=== PATIENT | female | born 1970 | race Caucasian/White ===

== ENCOUNTER 2024-06-12 11:09 | Inpatient (IN) | payer OTHER, SELFPAY ==
--- NOTE | 2024-06-12 | ECG_ITS ---
Test Reason : PROLONGED QTC Blood Pressure : */* mmHG Vent. Rate : 108 BPM Atrial Rate : 108 BPM P-R Int : 130 ms QRS Dur : 72 ms QT Int : 340 ms P-R-T Axes : 83 74 76 degrees QTcB Int : 455 ms Artifact in tracing Sinus tachycardia Nonspecific ST and T wave abnormality Abnormal ECG When compared with ECG of 12-Jun-2024 11:31, No significant changes seen Referred By: Trevor Koehler Electronically Signed By: GABO BALLESTEROS
--- NOTE | ~2024-06-12 | XR_ITS ---
CLINICAL HISTORY: fall, tenderness 3 view, pelvis and right hip Comparison: None Findings: No acute fracture or dislocation. Mild narrowing of the bilateral acetabulofemoral joints. The soft tissues are unremarkable. IMPRESSION: No acute fracture or dislocation. This document has been electronically signed by: Eloina Dhillon DO on 06/12/2024 13:44:17
--- NOTE | ~2024-06-12 | CT_ITS ---
CLINICAL HISTORY: fall with head strike, unknown LOC CT HEAD WITHOUT CONTRAST Comparison: None Findings: Multiple acquisitions were necessary secondary to patient motion. No acute intracranial hemorrhage, extra-axial fluid collection, hydrocephalus or midline shift. No significant atrophy-like change No significant white matter disease. There is no sinus or mastoid fluid. Visualized orbits: No acute abnormalities. There is no acute fracture. IMPRESSION: 1. No acute intracranial hemorrhage. This document has been electronically signed by: Eloina Dhillon DO on 06/12/2024 14:01:27
--- NOTE | ~2024-06-12 | CT_ITS ---
CLINICAL HISTORY: head strike, epistaxis, unknown LOC CT MAXILLOFACIAL WITHOUT CONTRAST Comparison: None Findings: No acute fractures. Old bilateral nasal bone fractures. Temporomandibular joints are intact. No sinus or mastoid fluid. Nonspecific mild mucosal thickening in the left frontal and right maxillary sinuses. Visualized orbits: No acute abnormalities. No foreign bodies. Please see the separate report for the CT head/brain. IMPRESSION: No acute maxillofacial fracture or acute sinonasal disease. This document has been electronically signed by: Eloina Dhillon DO on 06/12/2024 13:55:54
--- NOTE | ~2024-06-12 | CT_ITS ---
CLINICAL HISTORY: fall with head strike, unknown LOC CT CERVICAL SPINE WITHOUT CONTRAST Comparison: None Findings: Normal vertebral body alignment. [id number] disc and facet degenerative changes. No acute fractures or dislocations. Visualized intracranial contents are unremarkable. No cervical fluid collections or masses. Lung apices are clear. IMPRESSION: No acute fracture in the cervical spine. This document has been electronically signed by: Eloina Dhillon DO on 06/12/2024 13:53:41
[2024-06-12 11:20] VITALS: BP 174/73; PULSE 124
--- NOTE | 2024-06-12 11:22 | ED.PSYCH ---
HPI - Psych General Chief Complaint: Psychiatric Symptoms Stated Complaint: SI Time Seen by Provider: 06/12/24 11:21 Source: patient, EMS, RN notes reviewed, old records reviewed and police Mode of arrival: EMS History of Present Illness ED Provider: Prema HPI Narrative: Patient is a 53-year-old female with history of migraines presenting to the emergency department on a section 12 after partner found a suicide note, a noose, and an empty bottle of prosecco. Patient denies suicidal ideation at this time, states that she has been fighting with her partner for the past 6 months and admits to making suicidal statements out of anger. Denies homicidal ideation, auditory or visual hallucinations. Patient complaining of headache, neck, back and right hip pain after a slip and fall on water in the bathroom last night. Patient guarded, giving minimal one-word answers to questions, minimal engagement in assessment. MD complaint: suicidal ideation Related Data Home Medications ?Medication ?Instructions ?Recorded ?Confirmed baclofen 10 mg tablet 10 mg PO BEDTIME 06/12/24 06/12/24 dextroamphetamine-amphetamine 20 20 mg PO 2XD PRN ADD 06/12/24 06/12/24 mg tablet (Adderall) duloxetine 30 mg capsule,delayed 30 mg PO DAILY 06/12/24 06/12/24 release lorazepam 1 mg tablet (Ativan) 1 mg PO DAILY PRN Anxiety 06/12/24 06/12/24 mirtazapine 15 mg tablet 15 mg PO BEDTIME 06/12/24 06/12/24 tramadol 50 mg tablet 50 mg PO Q6H PRN Pain 06/12/24 06/12/24 Allergies Allergy/AdvReac Type Severity Reaction Status Date / Time Unable to Assess Allergy Verified 06/12/24 11:39 [facility] Social History Social History Advance Directives: No Advance Directives Information Provided: No Physical Exam Vital Signs: Vital Signs: Last Vital Signs Temp 98.1 F 06/12/24 14:11 Pulse 100 06/12/24 14:11 Resp 18 06/12/24 14:11 BP 141/71 H 06/12/24 14:11 Pulse Ox 118 H 06/12/24 14:11 O2 Del Method Room Air 06/12/24 14:11 BMI result Body Mass Index 20.0 Course Reevaluation(s) Reevaluation #1: 06/12/24 16:13 Per CARE team, patient will be inpatient LOC on a section 12 . Time: 16:13 Medical Decision Making Medical Decision Making [facility] Narrative: Patient is a 53-year-old female with history of migraines presenting to the emergency department on a section 12 after partner found a suicide note, a noose, and an empty bottle of prosecco. On exam patient is awake, A+Ox3, VS WNL, afebrile, normal neurological exam without focal deficits, physical exam findings as above. Given reported symptoms and physical exam findings, initial differential includes but is not limited to suicidal ideation, depression, ICH, skull or cervical vertebral fracture or subluxation, hip contusion versus fracture. Patient offered medication for her migraine/headache which she declined. Labs notable for slight leukocytosis, mild hypokalemia, elevated transaminases with normal Tbili, no prior labs for comparison but patient denies abdominal pain, negative acetaminophen and aspirin levels. X-ray right hip/pelvis notable for no acute fracture. CT head, cervical spine and facial bones notable for no evidence of ICH, skull, facial, or cervical vertebral fracture subluxation My interpretation is in agreement with the radiologist's interpretation. Will medically clear patient at this time and place him physician observation for care team evaluation. Differential Diagnosis Differential Diagnoses: The differential diagnosis associated with the presentation includes As per [facility] Admission/Observation Consideration of admission/observation: Escalation of care including admission/observation considered Consult Healthcare Provider Management of the patient was discussed with: Behavioral Health Provider Lab Data [facility] Lab Attestation statement: I reviewed the patient's lab results. As per [facility] 06/12/24 11:44 06/12/24 11:44 Labs: Lab Results 06/12/24 Range/Units 11:44 WBC 11.7 H (4.8-10.8) X10*3/uL RBC 4.22 (4.20-5.50) X10*6/uL Hgb 12.9 (12.0-16.0) g/dl Hct 37.6 (37.0-47.0) % MCV 89.1 (80.0-98.0) fL MCH 30.6 (27.0-33.0) pg MCHC 34.3 (31.0-35.0) g/dl RDW 14.0 (11.0-16.0) % Plt Count 267 (160-400) X10*3/uL MPV 9.5 (9.4-12.3) fL Immature Gran % (Auto) 0.3 (0.0-0.4) % Neut % (Auto) 67.7 (45-73) % Lymph % (Auto) 24.3 (20-40) % [place] % (Auto) 6.8 (2-11) % Eos % (Auto) 0.6 (0-4) % Baso % (Auto) 0.3 (0-2) % Lymph # (Auto) 2.8 (1.2-4.9) X10*3/uL [place] # (Auto) 0.8 (0.1-1.2) X10*3/uL Eos # (Auto) 0.1 (0.0-0.4) X10*3/uL Baso # (Auto) 0.0 (0.0-0.2) X10*3/uL Abs Immat Gran (auto) 0.04 H (0.00-0.03) X10*3/uL Absolute Neuts (auto) 7.9 (2.0-8.3) x10*3/uL Absolute Nucleated RBC 0.000 (0.0-0.012) X10*3/uL Nucleated RBC % (auto) 0.0 (0.0-0.2) /100WBC Sodium 139 (135-145) mmol/L Potassium 3.2 L (3.3-5.1) mmol/L Chloride 102 (96-108) mmol/L Carbon Dioxide 26 (22-29) mmol/L Anion Gap 14 (12-20) BUN 16 (9-16) mg/dL Creatinine 0.91 (0.5-1.4) mg/dL Estim Creat Clear Calc 60.2 Estimated GFR > 60 Random Glucose 119 H (60-115) mg/dL Calcium 9.6 (8.4-10.2) mg/dL Total Bilirubin 0.4 (0.0-1.0) mg/dL AST 132 H (5-31) U/L ALT 110 H (0-31) U/L Alkaline Phosphatase 82 (39-117) U/L Total Protein 6.9 (6.5-8.0) g/dL Albumin 4.4 (3.5-5.0) g/dL Salicylates < 5.0 L (15-30) mg/dL Acetaminophen < 3 (<30) mcg/mL Ethyl Alcohol < 10 mg/dL Influenza Type A (PCR) NEGATIVE (Negative) Influenza Type B (PCR) NEGATIVE (Negative) RSV RNA Qual (PCR) NEGATIVE (Negative) SARS-CoV-2 RNA (RT-PCR) NEGATIVE (Negative) Independent Interpretation I performed an independent interpretation of an: Plain X-Ray and CT Scan Interpretation: X-ray right hip/pelvis notable for no acute fracture. CT head, cervical spine and facial bones notable for no evidence of ICH, skull, facial, or cervical vertebral fracture subluxation Radiology Impression Discussion of test interpretation with radiology: I have reviewed the radiologist's reading. Radiologist Impression: Findings: Multiple acquisitions were necessary secondary to patient motion. No acute intracranial hemorrhage, extra-axial fluid collection, hydrocephalus or midline shift. No significant atrophy-like change No significant white matter disease. There is no sinus or mastoid fluid. Visualized orbits: No acute abnormalities. There is no acute fracture. IMPRESSION: 1. No acute intracranial hemorrhage. Findings: No acute fractures. Old bilateral nasal bone fractures. Temporomandibular joints are intact. No sinus or mastoid fluid. Nonspecific mild mucosal thickening in the left frontal and right maxillary sinuses. Visualized orbits: No acute abnormalities. No foreign bodies. Please see the separate report for the CT head/brain. IMPRESSION: No acute maxillofacial fracture or acute sinonasal disease. CT CERVICAL SPINE WITHOUT CONTRAST Comparison: None Findings: Normal vertebral body alignment. [id number] disc and facet degenerative changes. No acute fractures or dislocations. Visualized intracranial contents are unremarkable. No cervical fluid collections or masses. Lung apices are clear. IMPRESSION: No acute fracture in the cervical spine. 3 view, pelvis and right hip Comparison: None Findings: No acute fracture or dislocation. Mild narrowing of the bilateral acetabulofemoral joints. The soft tissues are unremarkable. IMPRESSION: No acute fracture or dislocation. This document has been electronically signed by: Eloina Dhillon DO on 06/12/2024 13:44:17 External Record Review External record reviewed: Inpatient record, Office record and Outpatient record Discharge Plan Discharge Clinical Impression: Suicidal ideation Patient Disposition: Admitted As Inpatient Interventions: Coke-Suicide Risk Severity Scale Last Done: 06/12/24 15:59
--- NOTE | 2024-06-12 11:22 | PC.NURSE ---
Per EMS pt called for fall with head,neck and r hip pain. EMS states pt has long standing hx of depression and SI. Partner reported finding notes, a noose, and empty bottle of prosecco.
[2024-06-12 11:27] VITALS: BP 161/95; PULSE 129; RESP 24; TEMP 37.5; O2SAT 100
--- NOTE | 2024-06-12 11:27 | ECG_ITS ---
Test Reason : SI Blood Pressure : */* mmHG Vent. Rate : 128 BPM Atrial Rate : 128 BPM P-R Int : 120 ms QRS Dur : 70 ms QT Int : 404 ms P-R-T Axes : * 58 91 degrees QTcB Int : 589 ms Sinus tachycardia Nonspecific ST and T wave abnormality Abnormal ECG No previous ECGs available Referred By: Freida Lloyd Electronically Signed By: GABO BALLESTEROS
[2024-06-12 11:48] LABS: MANUAL DIFF FLAG NO
--- NOTE | 2024-06-12 11:49 | PC.NURSE ---
belongings in [facility] 3
--- NOTE | 2024-06-12 11:49 | PC.NURSE ---
Pt asked about SI risks and pt not answering questions related to this
[2024-06-12 11:50] LABS: Basophils Percent Auto 0.3 % (0-2); Eosinophils Absolute Auto 0.1 X10*3/uL (0.0-0.4); Eosinophils Percent Auto 0.6 % (0-4); Hematocrit 37.6 % (37.0-47.0); Hemoglobin 12.9 g/dl (12.0-16.0); Imm Gran Abs Auto 0.04 X10*3/uL (0.00-0.03); Imm Gran Pct Auto 0.3 % (0.0-0.4); Lymphocytes Absolute Auto 2.8 X10*3/uL (1.2-4.9); Lymphocytes Percent Auto 24.3 % (20-40); Mean Corpuscular HGB Conc 34.3 g/dl (31.0-35.0); Mean Corpuscular Hemoglobin 30.6 pg (27.0-33.0); Mean Corpuscular Volume 89.1 fL (80.0-98.0); Mean Platelet Volume 9.5 fL (9.4-12.3); Monocytes Absolute Auto 0.8 X10*3/uL (0.1-1.2); Monocytes Percent Auto 6.8 % (2-11); Neutrophils Absolute Auto 7.9 x10*3/uL (2.0-8.3); Neutrophils Percent Auto 67.7 % (45-73); Platelet Count 267 X10*3/uL (160-400); Red Blood Count 4.22 X10*6/uL (4.20-5.50); White Blood Count 11.7 X10*3/uL (4.8-10.8)
[2024-06-12 12:08] LABS: Acetaminophen LAB < 3 mcg/mL (<30); Alanine Aminotransferase 110 U/L (0-31); Albumin Level 4.4 g/dL (3.5-5.0); Alkaline Phosphatase 82 U/L (39-117); Anion Gap 14 (12-20); Aspartate Amino Transferase 132 U/L (5-31); Bilirubin Total 0.4 mg/dL (0.0-1.0); Blood Urea Nitrogen 16 mg/dL (9-16); Calcium 9.6 mg/dL (8.4-10.2); Carbon Dioxide 26 mmol/L (22-29); Chloride 102 mmol/L (96-108); Creatinine Clr Calc Pharmacy 60.2; Estimated Glomerular Filt Rate > 60; Ethanol < 10 mg/dL; Glucose Random 119 mg/dL (60-115); Potassium 3.2 mmol/L (3.3-5.1); Salicylate < 5.0 mg/dL (15-30); Sodium 139 mmol/L (135-145); Total Protein 6.9 g/dL (6.5-8.0)
[2024-06-12 12:30] LABS: Influenza A PCR NEGATIVE (Negative); Influenza B PCR NEGATIVE (Negative); Resp Syncy Virus RNA Qual PCR NEGATIVE (Negative); SARS COV2 PCR INHOUSE NEGATIVE (Negative)
[2024-06-12 14:11] VITALS: BP 141/71; PULSE 100; RESP 18; TEMP 36.7; O2SAT 118
--- NOTE | 2024-06-12 14:38 | MHC.CARE ---
T/w reached out to [facility] ([phone]) to inquire if patient is known to the agency/ crisis services. Per Sade with [facility], patient is not known to [facility] or [facility], however Sade goes on to share that earlier this morning they received a phone call from patient's individual therapist, Radha Shafer ([phone]). Radha had called [facility] after she herself was called by patient and her husbands couple's counselor, Kira Bronson. Grisel, the couples counselor, informed Radha, the individual counselor, that patient's called her to report that patient had attempted to hang herself but he was able to stop her. Sade with [facility] informed Radha that they could call for a well being check or she could. Radha called and patient was brought to the [facility] ED.
--- NOTE | 2024-06-12 14:57 | PC.NURSE ---
patient complaining of headache, multiple RNs and provider offering medications for headache - patient declining all medications offered. will attempt to ambulate patient d/t pain in right hip
--- NOTE | 2024-06-12 15:15 | MHC.CARE ---
VM left for Radha Shafer, therapist, requesting call back
--- NOTE | 2024-06-12 18:25 | PC.NURSE ---
Pt aware of impending admission; in room with partner, tolerating po intake
--- NOTE | 2024-06-12 18:41 | PC.NURSE ---
Telephone report gv to [facility] on M5
[2024-06-12] MEDS: Potassium Chloride Packet 20 MEQ PACKET PO (18:55)
--- NOTE | 2024-06-12 19:25 | PC.NURSE ---
patient appears to remain at rest presently appears in no distress
[2024-06-12] MEDS: Ondansetron ODT 4 MG TAB.RAPDIS TRANSLINGU (19:36)
[2024-06-12 21:00] VITALS: BP 160/90; PULSE 105; RESP 16; TEMP 36.8; O2SAT 100
[2024-06-12] MEDS: Acetaminophen 325 MG TABLET 650 MG PO (21:21)
[2024-06-12] MEDS: Ibuprofen 400 MG TABLET PO (22:13)
[2024-06-13] VITALS (12 sets, daily range): BP systolic 142–190; BP diastolic 74–101; PULSE 87–113; RESP 19–20; TEMP 36.4–37.2; O2SAT 98–100
--- NOTE | 2024-06-13 | ECG_ITS ---
Test Reason : qtc monitor Blood Pressure : */* mmHG Vent. Rate : 94 BPM Atrial Rate : 94 BPM P-R Int : 138 ms QRS Dur : 72 ms QT Int : 360 ms P-R-T Axes : 77 46 50 degrees QTcB Int : 450 ms Normal sinus rhythm Nonspecific ST abnormality Abnormal ECG When compared with ECG of 12-Jun-2024 18:07, T wave inversion no longer evident in Anterior leads Referred By: Trevor Koehler Electronically Signed By: GABO BALLESTEROS
--- NOTE | 2024-06-13 02:21 | PC.ADMIT ---
Neela is a 53 years old female who was admitted from [facility] with CV status. She arrived to on 06/12/24 at 21:00. Per crisis evaluation she has history of migraines and was presented to the emergency department on a section 12 after partner found a suicide note, a noose, and an empty bottle of prosecco. Pt reports that she wants to stop pain and endorses hopelessness, she did not confirm having SI per crisis. shared that she left notes about wanting to . Patient complaining of headache, neck, back and right hip pain after a slip and fall on water in the bathroom last night at home. Upon arrival to pt reported a severe migraine and could not participate in admission assessment. Her gait was unsteady due to pain from recent fall and she was given a walker and placed on 5 min checks.
[2024-06-13] MEDS: Ibuprofen 400 MG TABLET PO (08:18)
[2024-06-13 08:44] LABS: Estimated Average Glucose 100 mg/dL; Hemoglobin A1C 113.2853 umol/L; Hemoglobin A1c % 5.1 % (<6.0); Total Hemoglobin (HGBA1C) 3470.7437 umol/L
--- NOTE | 2024-06-13 08:57 | HO.PSYADMNOT ---
HPI Date of Service: 06/13/24 Chief Complaint: SI Sources of Information: patient interviewed, chart reviewed and crisis/core team assessment reviewed HPI Subjective Notes: Conditional Voluntary Narrative: Patient is a 53-year-old female with history of chronic, intractable migraines for 25 years (treated at [facility]), MDD, PTSD? who presents for SI. Patient reports that she and her have had marital strife and have been in couples therapy for the past 6 month; during this time her chronic depression has worsened. She has remained on duloxetine 30 mg, not tolerating higher dose but was also started on mirtazapine few months ago as well. Patient reports continued depression and also feeling angry at her . This past week she slipped in bathroom, fell, hurt her hip. She called her to let him know and he called the ambulance who per chart, found a noose, a suicide note and a bottle up for wine. Patient said I was angry at her because he called the ambulance...he thought I was going to kill myself... On further inquiry, she acknowledges she perhaps said something to him to make him think she was suicidal... But says I don't remember what because i was pissed... Regarding the noose, she thinks perhaps she made it the day before. She says it was nothing she was going to act on but she was just thinking how crummy her life is; she reiterates she was not going to act on it but thinks maybe she wanted her to know how crummy she was feeling... And that she has been angry with him. Patient reports that since all this happened he's been better, more attentive..... She denies that there was a suicide note at all; she says she only had some of the wine and that she does not drink regularly. Patient acknowledges depression but denies any SI. denies hx of manic type behaviors/episodes Denies drug or alcohol abuse; uses cannabis for migraines Endorses history of childhood trauma Denies hx of self harm; SA Patient seen at 15:00 on 06/13 Past Psychiatric History: No history of psychiatric admissions Denies hx of self harm; SA Medications on Duloxetine 30mg for years which has partially helped; did go to 60mg but too much medication in my system; felt jittery on Mirtazapine 15mg for months med trials: zoloft paxil? Effexo Medical Evaluation Reviewed: Yes [facility] Medical History (Updated 06/13/24 @ 17:43 by Trevor Koehler MD) Migraine, intractable MDD (major depressive disorder), recurrent severe, without psychosis Family History: Deferred Social History: Lives with her Currently involved in couples therapy Substance History: Denies drug or alcohol abuse; uses cannabis for migraines Trauma History: Endorses history of childhood trauma Diagnostics Vital Signs (24Hr): Vital Signs - 24 hr 06/12/24 11:27 06/12/24 14:11 06/12/24 21:00 Temperature 99.5 F 98.1 F 98.3 F Pulse Rate 129 H 100 105 H Respiratory Rate 24 H 18 16 Blood Pressure 161/95 H 141/71 H 160/90 H Pulse Oximetry 100 118 H 100 Oxygen Delivery Method Room Air Room Air 06/13/24 08:00 Temperature 97.6 F Pulse Rate 98 Respiratory Rate 20 Blood Pressure 190/94 H Pulse Oximetry 100 Oxygen Delivery Method Room Air BMI result Body Mass Index 20.0 Labs 06/12/24 11:44 06/13/24 08:26 Labs: Laboratory Results - last 48 hr 06/12/24 06/13/24 11:44 08:26 WBC 11.7 H RBC 4.22 Hgb 12.9 Hct 37.6 MCV 89.1 MCH 30.6 MCHC 34.3 RDW 14.0 Plt Count 267 MPV 9.5 Immature Gran % (Auto) 0.3 Neut % (Auto) 67.7 Lymph % (Auto) 24.3 [place] % (Auto) 6.8 Eos % (Auto) 0.6 Baso % (Auto) 0.3 Lymph # (Auto) 2.8 [place] # (Auto) 0.8 Eos # (Auto) 0.1 Baso # (Auto) 0.0 Abs Immat Gran (auto) 0.04 H Absolute Neuts (auto) 7.9 Absolute Nucleated RBC 0.000 Nucleated RBC % (auto) 0.0 Sodium 139 Potassium 3.2 L Chloride 102 Carbon Dioxide 26 Anion Gap 14 BUN 16 Creatinine 0.91 Estim Creat Clear Calc 60.2 Estimated GFR > 60 Random Glucose 119 H Estimat Average Glucose 100 Hemoglobin A1c % 5.1 Calcium 9.6 Total Bilirubin 0.4 AST 132 H ALT 110 H Alkaline Phosphatase 82 Total Protein 6.9 Albumin 4.4 Salicylates < 5.0 L Acetaminophen < 3 Ethyl Alcohol < 10 Influenza Type A (PCR) NEGATIVE Influenza Type B (PCR) NEGATIVE RSV RNA Qual (PCR) NEGATIVE SARS-CoV-2 RNA (RT-PCR) NEGATIVE Meds/Allergies Meds Home Medications ?Medication ?Instructions ?Recorded ?Confirmed ?Type baclofen 10 mg tablet 10 mg PO BEDTIME 06/12/24 06/13/24 History dextroamphetamine-amphetamine 20 20 mg PO 2XD PRN ADD 06/12/24 06/13/24 History mg tablet (Adderall) duloxetine 30 mg capsule,delayed 30 mg PO DAILY 06/12/24 06/13/24 History release lorazepam 1 mg tablet (Ativan) 1 mg PO DAILY PRN Anxiety 06/12/24 06/13/24 History mirtazapine 15 mg tablet 15 mg PO BEDTIME 06/12/24 06/13/24 History tramadol 50 mg tablet 50 mg PO Q6H PRN Pain 06/12/24 06/13/24 History Allergies Allergies Allergy/AdvReac Type Severity Reaction Status Date / Time Metoclopramide AdvReac Intermediate agitation Uncoded 06/13/24 12:29 Mental Status Exam Mental Status Exam Narrative: Pt is alert and oriented; behavior is cooperative, calm, sitting on the bed with towel over her eyes; somewhat guarded; patient is not in distress; dressed in hospital attire with unkempt hair but adequate hygiene; mood is described as depressed and affect congruent; eye contact appropriate; Speech is soft spoken; normal rate and prosody and not pressured; psychomotor retardation present; thought process isl directed; Thought content migraines, marital struggles, tx; otherwise pertinent to relevant topics and without any delusional content, paranoid ideations or grandiosity; denies any SI/HI. Denies AVH and there is no evidence of perceptual disturbance. Patients insight and judgment impaired Assessment & Plan Assessment & Plan (1) MDD (major depressive disorder), recurrent severe, without psychosis: Status: Acute Code(s): F33.2 - Major depressive disorder, recurrent severe without psychotic features (2) Migraine, intractable: Status: Acute Code(s): G43.919 - Migraine, unspecified, intractable, without status migrainosus Plan Patient is a 53-year-old female with history of chronic, intractable migraines for 25 years (treated at [facility]), MDD, PTSD? who presents for SI. Patient reports that she and her have had marital strife and have been in couples therapy for the past 6 month; during this time her chronic depression has worsened. She has remained on duloxetine 30 mg, not tolerating higher dose but was also started on mirtazapine few months ago as well. Patient reports continued depression and also feeling angry at her . This past week she slipped in bathroom, fell, hurt her hip. She called her to let him know and he called the ambulance who per chart, found a noose, a suicide note and a bottle up for wine. Patient said I was angry at her because he called the ambulance...he thought I was going to kill myself... On further inquiry, she acknowledges she perhaps said something to him to make him think she was suicidal... But says I don't remember what because i was pissed... Regarding the noose, she thinks perhaps she made it the day before. She says it was nothing she was going to act on but she was just thinking how crummy her life is; she reiterates she was not going to act on it but thinks maybe she wanted her to know how crummy she was feeling... And that she has been angry with him. Patient reports that since all this happened he's been better, more attentive..... She denies that there was a suicide note at all; she says she only had some of the wine and that she does not drink regularly. Patient acknowledges depression but denies any SI. denies hx of manic type behaviors/episodes Denies drug or alcohol abuse; uses cannabis for migraines Endorses history of childhood trauma Denies hx of self harm; SA Formulation/clinical reasoning: Patient struggling with depression in the midst of marital strife. Denies actual SI reports this was a gesture motivated by feeling hurt and anger towards . Patient reports chronic depression with only partial benefit from Cymbalta however does not tolerate higher dose. Agrees to increasing mirtazapine -patient denies any history of hypertension however has been hypertensive since coming to the unit -benefitted modestly from hydralazine; will try clonidine and monitor PLAN: CV Q 15 minute checks Continue duloxetine 30 mg Increase mirtazapine to 30 mg q.h.s. for ongoing depression Continue Abilify 2 mg daily as augmentation for depression Adding clonidine 0.1 mg b.i.d.; may help with anxiety and help lower blood pressure Will add hydralazine p.r.n. for hypertension Patient may use black hat which she uses to mitigate light triggers for migraine Patient educated on: diagnosis, medication risk/benefits and medical condition Informed Consent: understands Reason for continued inpatient stay Substantial Risk for: rapid decompensation Statement Statement: I have reviewed the history and physical and performed a pertinent examination on my patient. No changes have occurred unless specified. If the History and Physical was not performed prior to admission, the Hospitalist's service will be consulted for completing the admission physical. Time Spent With Patient Time: Total time managing care of this patient today ____ minutes.
[2024-06-13 09:10] LABS: Alanine Aminotransferase 96 U/L (0-31); Albumin Level 4.3 g/dL (3.5-5.0); Alkaline Phosphatase 76 U/L (39-117); Anion Gap 20 (12-20); Aspartate Amino Transferase 102 U/L (5-31); Bilirubin Total 0.8 mg/dL (0.0-1.0); Blood Urea Nitrogen 22 mg/dL (9-16); Calcium 9.5 mg/dL (8.4-10.2); Carbon Dioxide 24 mmol/L (22-29); Chloride 103 mmol/L (96-108); Cholesterol 172 mg/dL (<200); Creatinine Clr Calc Pharmacy 76.1; Estimated Glomerular Filt Rate > 60; Glucose Random 100 mg/dL (60-115); HDL Cholesterol 76 mg/dL (>40); LDL Cholesterol Calculated 85 mg/dL (<100); Potassium 3.5 mmol/L (3.3-5.1); Sodium 143 mmol/L (135-145); TSH reflex Free T4 2.63 uIU/mL (0.32-4.0); Total Protein 6.9 g/dL (6.5-8.0); Triglycerides 59 mg/dL (<150)
[2024-06-13] MEDS: Butalb/Acetamin/Caff 50/325/40 TABLET 1 TAB PO ×2 (09:21→21:16)
[2024-06-13] MEDS: hydrALAZINE HCl 10 MG TABLET PO ×2 (09:52→11:30)
[2024-06-13 12:55] LABS: Appearance Urine Clear; Color Urine Dark Yellow; Glucose Urine UA Negative (Negative); Leukocyte Esterase Urine Negative (Negative); Nitrite Urine Negative (Negative); PH 5.5 (5.0-9.0); Specific Gravity - Urine >= 1.030 (1.005-1.025); UMIC TRIGGER UACC YES; Urine Blood Negative (Negative); Urine Ketones 80 mg/dL (Negative); Urine Protein 30 (1+) mg/dL (Neg-Trace)
[2024-06-13 13:05] LABS: Amphetamine Screen Urine POSITIVE (Not Detect); Barbiturates, Urine Not Detected (Not Detect); Benzodiazepines Screen Urine Not Detected (Not Detect); Buprenorphine Scr Not Detected (Not Detect); Cannabinoid Screen Urine POSITIVE (Not Detect); Cocaine Screen Urine Not Detected (Not Detect); Fentanyl, urine Not Detected (Not Detect); Methadone Screen, Urine Not Detected (Not Detect); Opiate Screen Urine Not Detected (Not Detect); Oxycodone Screen Urine Not Detected (Not Detect); Phencyclidine Screen Urine Not Detected (Not Detect)
[2024-06-13 13:15] LABS: Bacteria Urine Trace (None Seen); Hyaline Casts Urine 0-2 /LPF (0-2); RBC Urine 0-2 /HPF (0-2); WBC Urine 0-5 /HPF (0-5)
[2024-06-13] MEDS: DULoxetine HCl 30 MG CAPSULE.DR PO (15:56)
[2024-06-13] MEDS: ARIPiprazole 2 MG TABLET PO (15:56)
[2024-06-13] MEDS: cloNIDine HCL 0.1 MG TABLET PO ×2 (16:02→21:15)
[2024-06-13] MEDS: LORazepam 1 MG TABLET PO (18:11)
[2024-06-13] MEDS: traMADoL HCL 50 MG TABLET PO (18:15)
[2024-06-13] MEDS: hydrALAZINE HCl 25 MG TABLET PO (18:56)
--- NOTE | 2024-06-13 19:05 | PC.NURSE ---
Pt BP rechecked after receiving Clonidine this evening and largely unchanged. BP reading 180/97, pulse 113. MD Koehler notified and recieved order for Hydralazine 25 mg po once at same time medicated with Ativan and Tramadol for reported pain ro right hip (and ongoing reported migraine AUGUSTE) BP unchanged after Tramadol and Ativan and given ordered Hydralazine. Provider asked for hospitalist consult for hypertension. Pt reports she doesn't have high blood pressure and is not on any antihypertensives. Will endorse to night RN to re evaluate BP in 1 hr and follow up with hospitalist consult recommendations.
--- NOTE | 2024-06-13 19:34 | P.CNHOSGPS_ITS ---
History of Present Illness Data of Consult Service Date: 06/13/24 Requesting physician: Trevor Koehler Primary Care Provider: Unknown Physician HPI Reason for consult: HTN, intractable Migraine (chronic) Patient is a 53-year-old female with past medical history of migraine (intractable), fibromyalgia, MDD, insomnia was admitted to the psychiatric unit after medical clearance in the emergency department status post fall, mechanical in nature and negative CT of the head, face, and cervical spine for report of suicidal ideations by patient's spouse. Patient noted to have persistent hypertension 180s over 90s with continued symptoms of intractable migraine. Patient does on occasion have aura. Patient reports pain mostly in the frontal area. Patient has had her eyes checked recently and does wear glasses for reading only. Patient continues to have head to toe stiffness status post fall with pain in the lower back area. Patient has mild bruising over the left thumb area but with full range of motion of the left hand and left arm. Patient has areas of redness that are blanchable in the coccyx area. No open wounds found. Patient states she follows with Neurology at [facility] for her migraines and receives 31 injections every 8 weeks. Patient has had migraines for the last 25 years. Patient has extensive that the injections are now interfering with her fibromyalgia. Patient states she did get minimal relief with the Fioricet today. Patient no longer takes Imitrex p.r.n.. Neurological exam within normal limits. Psychiatry has already started patient on clonidine 0.1 mg b.i.d.. Patient did receive 2 doses of hydralazine. Staff are monitoring patient's blood pressure closely. EKG was negative for any abnormal findings including ischemic changes. No murmur on exam. No vascular concerns found. Review of Systems 2 Review of Systems: Patient denies chest pain, shortness of breath at rest or with exertion, abdominal pain, nausea, vomiting, lower calf edema or pain. Patient reports intractable migraine symptoms reporting 6/10 frontal area pain. Patient denies any changes with her visual acuity. Patient states she is having stiffness and pain in the left side more so than the right status post a fall 24 hours ago. Yes all other systems are reviewed and are negative [facility] Medical History (Updated 06/13/24 @ 19:51 by ISABEL Isaac) Migraine, intractable MDD (major depressive disorder), recurrent severe, without psychosis Cognitive capacity: Alert and orientated x3 Functional capacity: independent ambulation (Patient provided walker by staff in case needed) Patient : No Social History Household Members: Family Housing: House Patient Tobacco Use Status: Never used Tobacco Use of substances other than those prescribed or required for medical reasons: Yes Substance Use Type: Marijuana Substance Use Frequency: Daily Last Used Substance: Just Prior to Admission Currently Displaying Signs/Symptoms of Drug Intoxication Withdrawal: No Any prior treatment program specific to substance use: No Have you been hit, kicked, punched, or otherwise hurt by someone within the past year? If so, by whom?: No Do you feel safe in your current relationship?: Yes Is there a partner from a previous relationship who is making you feel unsafe now?: No Are you made to feel afraid or neglected: No Advance Directives: No Advance Directives Information Provided: No Do you have thoughts of harming others: None Do you have a plan to hurt others: No Plan Recently lost weight without trying: No Nutrition Risks: No Nutritional Risk Patient : No : No service: No Sexual orientation: Straight/Heterosexual Ebola Risk: Travel/Contact With Anyone From Affected Area/s: No Has Patient Experienced Ebola Symptoms: No Meds Allergies Allergy/AdvReac Type Severity Reaction Status Date / Time Metoclopramide AdvReac Intermediate agitation Uncoded 06/13/24 12:29 Active Medications: Current Medications Acetaminophen (Acetaminophen 325 Mg Tablet) 650 mg PO Q6H PRN PRN Reason: Headache/Pain, Scale 1-10 Last Admin: 06/12/24 21:21 Dose: 650 mg Al Hydroxide/Mg Hydroxide (Magnesium Hydrox/Alum Hydrox 30 Ml Oral.Susp) 30 ml PO Q6H PRN PRN Reason: Heartburn/Nausea Aripiprazole (Aripiprazole 2 Mg Tablet) 2 mg PO DAILY LADI Baclofen (Baclofen 10 Mg Tablet) 10 mg PO BEDTIME LADI Clonidine HCl (Clonidine Hcl 0.1 Mg Tablet) 0.1 mg PO BID LADI; Protocol Duloxetine HCl (Duloxetine Hcl 30 Mg Capsule.Dr) 30 mg PO DAILY LADI Hydroxyzine HCl (Hydroxyzine Hcl 25 Mg Tablet) 25 mg PO Q6H PRN PRN Reason: mild anxiety Ibuprofen (Ibuprofen 400 Mg Tablet) 400 mg PO Q6H PRN PRN Reason: Pain, Moderate(Pain Scale 4-6) Last Admin: 06/13/24 08:18 Dose: 400 mg Lorazepam (Lorazepam 1 Mg Tablet) 1 mg PO DAILY PRN PRN Reason: Anxiety Last Admin: 06/13/24 18:11 Dose: 1 mg Magnesium Hydroxide (Milk Of Magnesia 30 Ml Oral.Susp) 30 ml PO DAILY PRN PRN Reason: Constipation Mirtazapine (Mirtazapine 30 Mg Tablet) 30 mg PO BEDTIME LADI Nicotine Polacrilex (Nicotine Polacrilex 2 Mg Gum) 4 mg BUCCAL Q2H PRN PRN Reason: Nicotine Cravings Olanzapine (Olanzapine 5 Mg Tablet) 5 mg PO TID PRN PRN Reason: agitation Ondansetron HCl (Ondansetron Odt 4 Mg Tab.Rapdis) 4 mg TRANSLINGU Q6H PRN PRN Reason: Nausea and Vomiting Last Admin: 06/12/24 19:36 Dose: 4 mg Tramadol HCl (Tramadol Hcl 50 Mg Tablet) 50 mg PO Q6H PRN PRN Reason: severe Pain Last Admin: 06/13/24 18:15 Dose: 50 mg Trazodone HCl (Trazodone Hcl 50 Mg Tablet) 50 mg PO BEDTIME MRX1 PRN PRN Reason: Insomnia Home Medications ?Medication ?Instructions ?Recorded ?Confirmed ?Last Taken ?Type baclofen 10 mg tablet 10 mg PO BEDTIME 06/12/24 06/13/24 06/11/24 History 10 mg dextroamphetamine-amphetamine 20 20 mg PO 2XD PRN ADD 06/12/24 06/13/24 Unknown History mg tablet (Adderall) duloxetine 30 mg capsule,delayed 30 mg PO DAILY 06/12/24 06/13/24 06/11/24 History release 30 mg lorazepam 1 mg tablet (Ativan) 1 mg PO DAILY PRN Anxiety 06/12/24 06/13/24 06/11/24 History 1 mg mirtazapine 15 mg tablet 15 mg PO BEDTIME 06/12/24 06/13/24 06/11/24 History 15 mg tramadol 50 mg tablet 50 mg PO Q6H PRN Pain 06/12/24 06/13/24 06/11/24 History 50 mg Results Labs 06/12/24 11:44 06/13/24 08:26 Labs: Laboratory Results - last 24 hr 04/27/25 04/27/25 08:26 12:15 Anion Gap 20 Estim Creat Clear Calc 76.1 Estimated GFR > 60 Random Glucose 100 Estimat Average Glucose 100 Hemoglobin A1c % 5.1 Calcium 9.5 Total Bilirubin 0.8 AST 102 H ALT 96 H Alkaline Phosphatase 76 Total Protein 6.9 Albumin 4.3 Triglycerides 59 Cholesterol 172 LDL Cholesterol, Calc 85 HDL Cholesterol 76 TSH 2.63 Urine Color Dark Yellow Urine Appearance Clear Urine pH 5.5 Ur Specific [place] >= 1.030 H Urine Protein 30 (1+) H Urine Glucose (UA) Negative Urine Ketones 80 Urine Blood Negative Urine Nitrite Negative Ur Leukocyte Esterase Negative Urine RBC 0-2 Urine WBC 0-5 Ur Squamous Epith Cells 3-5 Urine Bacteria Trace Hyaline Casts 0-2 Urine Opiates Screen Not Detected Ur Buprenorphine Scrn Not Detected Ur Oxycodone Screen Not Detected Urine Methadone Screen Not Detected Urine Fentanyl Screen Not Detected Ur Barbiturates Screen Not Detected Ur Phencyclidine Scrn Not Detected Ur Amphetamines Screen POSITIVE H U Benzodiazepines Scrn Not Detected Urine Cocaine Screen Not Detected U Marijuana (THC) Screen POSITIVE H ECG Attestation: I personally reviewed and interpreted this ECG as follows: (Normal sinus rhythm no ischemic changes) Imaging Radiologist's Impressions: CT Head Findings: Multiple acquisitions were necessary secondary to patient motion. No acute intracranial hemorrhage, extra-axial fluid collection, hydrocephalus or midline shift. No significant atrophy-like change No significant white matter disease. There is no sinus or mastoid fluid. Visualized orbits: No acute abnormalities. There is no acute fracture. IMPRESSION: 1. No acute intracranial hemorrhage. CT Face Findings: No acute fractures. Old bilateral nasal bone fractures. Temporomandibular joints are intact. No sinus or mastoid fluid. Nonspecific mild mucosal thickening in the left frontal and right maxillary sinuses. Visualized orbits: No acute abnormalities. No foreign bodies. Please see the separate report for the CT head/brain. IMPRESSION: No acute maxillofacial fracture or acute sinonasal disease Cervical Spine IMPRESSION: No acute fracture in the cervical spine Hip and Pelvis Findings: No acute fracture or dislocation. Mild narrowing of the bilateral acetabulofemoral joints. The soft tissues are unremarkable. IMPRESSION: No acute fracture or dislocation Assessment and Plan (1) HTN (hypertension): Qualifiers: Hypertension type: primary hypertension Qualified Code(s): I10 - Essential (primary) hypertension Status: Acute (2) Migraine, intractable: Qualifiers: Migraine type: chronic migraine (15 or more days per month) without aura Status migrainosus presence: with status migrainosus Qualified Code(s): G 43.711 - Chronic migraine without aura, intractable, with status migrainosus Status: Acute (3) Status post fall: Status: Acute Plan Patient is a 53-year-old female with past medical history of migraine (intractable), fibromyalgia, MDD, insomnia medically cleared and admitted directly to Psychiatry for suicidal Ideations as reported by her spouse. Patient continues to have hypertension and an intractable migraine. Hospitalist consulted for these 2 medical issues. Hypertension -Per Psychiatry patient is receiving clonidine 0.1 mg b.i.d. with minimal effect. Recommend adding amlodipine 5 mg daily to start in AM. -Avoid hydralazine p.r.n. -Low-sodium diet -EKG negative for any ischemic changes, arrhythmia or LVH. No murmur on exam. Patient presents euvolemic. -Patient does follow with the primary care physician and has never been told she had hypertension in the past. Monitor for possibility of hypotension. -Vital signs should be checked every 4 hours until blood pressure normalizes and then Q shift if patient remains on new medications. -Thyroid function within normal limit. Intractable migraine -Recommend continuing Fioricet p.r.n. -Patient does not want to use Imitrex p.r.n. -Patient follows with Neurology at [facility] -Avoid NSAIDs due to patient's hypertension Status post fall, mechanical -Patient was cleared in the ED. all imaging is negative for any acute findings. -Recommend topical treatment for aches and pains. -Walker provided p.r.n. Hospitalist group we will continue to follow patient regarding hypertension to ensure normalization. Physical Exam Vital Signs: Last Vital Signs Temp 99 F 06/13/24 10:42 Pulse 113 H 06/13/24 18:08 Resp 20 06/13/24 18:08 BP 184/84 H 06/13/24 18:56 Pulse Ox 99 06/13/24 18:08 O2 Del Method Room Air 06/13/24 18:08 BMI result Body Mass Index 20.0 Alert and orientated X3, able to give adequate hx. Neuro: CN II-X11 intact, no deficits, visual acuity intact EYES: PERRLA, EOM intact ENT: hearing intact, no issues with swallowing, uvula midline, lips moist, nares patent no epistaxis Cardiac: S1 S2 RRR, no murmur, no JVD, no edema in Lower ext Pulmonary: lungs clear to auscultation B Abdominal: BS active in all 4 quadrants, no guarding, tenderness, rebounding MSK: strength 4/5 L upper, 5/5 R upper and 5/5 B lower extremities : no CVA tenderness no bladder distension Extremities: no edema in lower extremities, PT and DP pulses palpable +2 Psych: mood stable, judgement and insight good Skin: blanchable areas of redness coccyx (related to fall per pt), bruisng L thumb area, redness (abrasion like) R upper facial area above R eye not involving the temporal area. Neuro Cranial nerves: Yes CN's II-XII intact bilaterally
[2024-06-13] MEDS: Baclofen 10 MG TABLET PO (21:14)
[2024-06-13] MEDS: Mirtazapine 30 MG TABLET PO (21:16)
[2024-06-14 07:51] VITALS: BP 149/80; PULSE 93; RESP 18; TEMP 36.2; O2SAT 99
[2024-06-14] MEDS: amLODIPine Besylate 5 MG TABLET PO (08:19)
[2024-06-14] MEDS: cloNIDine HCL 0.1 MG TABLET PO (08:21)
[2024-06-14] MEDS: ARIPiprazole 2 MG TABLET PO (08:21)
[2024-06-14] MEDS: traMADoL HCL 50 MG TABLET PO (08:32)
--- NOTE | 2024-06-14 10:15 | HO.PSYCHPN ---
Subjective Subjective Date of Service: 06/14/24 Reason For Visit: SI Subjective Notes: Conditional Voluntary Healthcare Proxy: No Guardianship: No Medical Problems Affecting Mental Status: No Interim History: There were too many med changes made at once . Discussed med changes from admission. Pt not feeling well today-unsure what SE she is experiencing-Mirtazapine increase to 30 mg, Abilify at 2 mg, Clonidine at 0.1 mg bid, Hydralazine prn. Asks that the a.m. med be held (Abilify). Discussed her distress with discussion of Narcan on admission. We discussed her migraine hx. She declines [facility] contact, declines contact with her prescriber and declines [facility] neuro consult at this time. Discussed taking a conservative approach to her med changes which she agreed with. As a result we will keep Mirtazapine, Clonidine, Hydralazine and hold Abilify at this time. Medication Compliance: Yes Side effects from medications: Yes Attending Groups: No Review of Systems migraine Review of Systems Review of Systems migraine Mental Status Exam Mental Status Exam Patient Appearance: Fatigued and Appropriate Patient Orientation: Person, Place, Time and Situation Level of Consciousness: Alert Patient Behavior: Appropriate, Talkative and Good Eye Contact Mood Description: Constricted and Depressed Affect Description: Constricted and Depressed Patient Cognition Impaired: No Ability to Follow Directions: Good Speech Pattern: Spontaneous Speech Memory Description: Intact Hallucinations: None Delusions: Not Present Thought Content: positive for Circumstantial and positive for Suicidal Ideation (denied) Depressive Symptoms: Thoughts of /Suicide (denies) Judgement: Fair Diagnostics Vital Signs (24Hr): Vital Signs - 24 hr 06/13/24 10:42 06/13/24 11:31 06/13/24 12:49 Temperature 99 F Pulse Rate 95 111 H Respiratory Rate 19 Blood Pressure 177/92 H 180/74 H 166/94 H Pulse Oximetry 98 Oxygen Delivery Method Room Air 06/13/24 16:02 06/13/24 16:09 06/13/24 18:08 Temperature Pulse Rate 87 113 H Respiratory Rate 20 Blood Pressure 190/90 H 177/90 H 180/97 H Pulse Oximetry 99 Oxygen Delivery Method Room Air 06/13/24 18:56 06/13/24 20:00 06/13/24 20:51 Temperature 97.6 F Pulse Rate 104 H Respiratory Rate Blood Pressure 184/84 H 179/85 H 142/93 H Pulse Oximetry 99 Oxygen Delivery Method Room Air 06/13/24 21:15 06/14/24 07:51 Temperature 97.2 F Pulse Rate 93 Respiratory Rate 18 Blood Pressure 142/93 H 149/80 H Pulse Oximetry 99 Oxygen Delivery Method Room Air BMI result Body Mass Index 20.0 Labs 06/12/24 11:44 06/13/24 08:26 Labs: Laboratory Results - last 48 hr 06/12/24 06/13/24 06/13/24 11:44 08:26 12:15 WBC 11.7 H RBC 4.22 Hgb 12.9 Hct 37.6 MCV 89.1 MCH 30.6 MCHC 34.3 RDW 14.0 Plt Count 267 MPV 9.5 Immature Gran % (Auto) 0.3 Neut % (Auto) 67.7 Lymph % (Auto) 24.3 [place] % (Auto) 6.8 Eos % (Auto) 0.6 Baso % (Auto) 0.3 Lymph # (Auto) 2.8 [place] # (Auto) 0.8 Eos # (Auto) 0.1 Baso # (Auto) 0.0 Abs Immat Gran (auto) 0.04 H Absolute Neuts (auto) 7.9 Absolute Nucleated RBC 0.000 Nucleated RBC % (auto) 0.0 Sodium 139 143 Potassium 3.2 L 3.5 Chloride 102 103 Carbon Dioxide 26 24 Anion Gap 14 20 BUN 16 22 H Creatinine 0.91 0.72 Estim Creat Clear Calc 60.2 76.1 Estimated GFR > 60 > 60 Random Glucose 119 H 100 Estimat Average Glucose 100 Hemoglobin A1c % 5.1 Calcium 9.6 9.5 Total Bilirubin 0.4 0.8 AST 132 H 102 H ALT 110 H 96 H Alkaline Phosphatase 82 76 Total Protein 6.9 6.9 Albumin 4.4 4.3 Triglycerides 59 Cholesterol 172 LDL Cholesterol, Calc 85 HDL Cholesterol 76 TSH 2.63 Urine Color Dark Yellow Urine Appearance Clear Urine pH 5.5 Ur Specific [place] >= 1.030 H Urine Protein 30 (1+) H Urine Glucose (UA) Negative Urine Ketones 80 Urine Blood Negative Urine Nitrite Negative Ur Leukocyte Esterase Negative Urine RBC 0-2 Urine WBC 0-5 Ur Squamous Epith Cells 3-5 Urine Bacteria Trace Hyaline Casts 0-2 Salicylates < 5.0 L Urine Opiates Screen Not Detected Ur Buprenorphine Scrn Not Detected Ur Oxycodone Screen Not Detected Urine Methadone Screen Not Detected Urine Fentanyl Screen Not Detected Acetaminophen < 3 Ur Barbiturates Screen Not Detected Ur Phencyclidine Scrn Not Detected Ur Amphetamines Screen POSITIVE H U Benzodiazepines Scrn Not Detected Urine Cocaine Screen Not Detected U Marijuana (THC) Screen POSITIVE H Ethyl Alcohol < 10 Influenza Type A (PCR) NEGATIVE Influenza Type B (PCR) NEGATIVE RSV RNA Qual (PCR) NEGATIVE SARS-CoV-2 RNA (RT-PCR) NEGATIVE Medications Medications Current Medications Acetaminophen (Acetaminophen 325 Mg Tablet) 650 mg PO Q6H PRN PRN Reason: Headache/Pain, Scale 1-10 Last Admin: 06/12/24 21:21 Dose: 650 mg Acetaminophen/Butalbital/Caffeine (Butalb/Acetamin/Caff 50/325/40 Tablet) 1 tab PO Q4H PRN PRN Reason: Migraine Headache Last Admin: 06/13/24 21:16 Dose: 1 tab Al Hydroxide/Mg Hydroxide (Magnesium Hydrox/Alum Hydrox 30 Ml Oral.Susp) 30 ml PO Q6H PRN PRN Reason: Heartburn/Nausea Amlodipine Besylate (Amlodipine Besylate 5 Mg Tablet) 5 mg PO DAILY COUNTS INCLUDE 234 BEDS AT THE [facility]; Protocol Last Admin: 06/14/24 08:19 Dose: 5 mg Aripiprazole (Aripiprazole 2 Mg Tablet) 2 mg PO DAILY LADI Last Admin: 06/14/24 08:21 Dose: 2 mg Baclofen (Baclofen 10 Mg Tablet) 10 mg PO BEDTIME LADI Last Admin: 06/13/24 21:14 Dose: 10 mg Clonidine HCl (Clonidine Hcl 0.1 Mg Tablet) 0.1 mg PO BID LADI; Protocol Last Admin: 06/14/24 08:21 Dose: 0.1 mg Duloxetine HCl (Duloxetine Hcl 30 Mg Capsule.Dr) 30 mg PO DAILY LADI Last Admin: 06/14/24 08:46 Dose: Not Given Hydroxyzine HCl (Hydroxyzine Hcl 25 Mg Tablet) 25 mg PO Q6H PRN PRN Reason: mild anxiety Ibuprofen (Ibuprofen 400 Mg Tablet) 400 mg PO Q6H PRN PRN Reason: Pain, Moderate(Pain Scale 4-6) Last Admin: 06/13/24 08:18 Dose: 400 mg Lorazepam (Lorazepam 1 Mg Tablet) 1 mg PO DAILY PRN PRN Reason: Anxiety Last Admin: 06/13/24 18:11 Dose: 1 mg Magnesium Hydroxide (Milk Of Magnesia 30 Ml Oral.Susp) 30 ml PO DAILY PRN PRN Reason: Constipation Mirtazapine (Mirtazapine 30 Mg Tablet) 30 mg PO BEDTIME LADI Last Admin: 06/13/24 21:16 Dose: 30 mg Nicotine Polacrilex (Nicotine Polacrilex 2 Mg Gum) 4 mg BUCCAL Q2H PRN PRN Reason: Nicotine Cravings Olanzapine (Olanzapine 5 Mg Tablet) 5 mg PO TID PRN PRN Reason: agitation Ondansetron HCl (Ondansetron Odt 4 Mg Tab.Rapdis) 4 mg TRANSLINGU Q6H PRN PRN Reason: Nausea and Vomiting Last Admin: 06/12/24 19:36 Dose: 4 mg Tramadol HCl (Tramadol Hcl 50 Mg Tablet) 50 mg PO Q6H PRN PRN Reason: severe Pain Last Admin: 06/14/24 08:32 Dose: 50 mg Trazodone HCl (Trazodone Hcl 50 Mg Tablet) 50 mg PO BEDTIME MRX1 PRN PRN Reason: Insomnia Allergies Allergies Allergy/AdvReac Type Severity Reaction Status Date / Time Metoclopramide AdvReac Intermediate agitation Uncoded 06/13/24 12:29 Assessment & Plan Assessment & Plan (1) HTN (hypertension): Qualifiers: Hypertension type: primary hypertension Qualified Code(s): I10 - Essential (primary) hypertension Status: Acute Code(s): I10 - Essential (primary) hypertension (2) Migraine, intractable: Qualifiers: Migraine type: chronic migraine (15 or more days per month) without aura Status migrainosus presence: with status migrainosus Qualified Code(s): G43.711 - Chronic migraine without aura, intractable, with status migrainosus Status: Acute Code(s): G43.919 - Migraine, unspecified, intractable, without status migrainosus (3) Status post fall: Status: Acute Code(s): Z91.81 - History of falling Plan Patient is a 53-year-old female with past medical history of migraine (intractable), fibromyalgia, MDD, insomnia medically cleared and admitted directly to Psychiatry for suicidal Ideations as reported by her spouse. Patient continues to have hypertension and an intractable migraine. Hospitalist consulted for these 2 medical issues. Hypertension -Per Psychiatry patient is receiving clonidine 0.1 mg b.i.d. with minimal effect. Recommend adding amlodipine 5 mg daily to start in AM. -Avoid hydralazine p.r.n. -Low-sodium diet -EKG negative for any ischemic changes, arrhythmia or LVH. No murmur on exam. Patient presents euvolemic. -Patient does follow with the primary care physician and has never been told she had hypertension in the past. Monitor for possibility of hypotension. -Vital signs should be checked every 4 hours until blood pressure normalizes and then Q shift if patient remains on new medications. -Thyroid function within normal limit. Intractable migraine -Recommend continuing Fioricet p.r.n. -Patient does not want to use Imitrex p.r.n. -Patient follows with Neurology at [facility] -Avoid NSAIDs due to patient's hypertension Status post fall, mechanical -Patient was cleared in the ED. all imaging is negative for any acute findings. -Recommend topical treatment for aches and pains. -Walker provided p.r.n. Hospitalist group we will continue to follow patient regarding hypertension to ensure normalization. 06/14- Hold Abilify Continue Mirtazapine at 30 mg HS Continue clonidine, hydralazine Reason for continued inpatient stay Substantial Risk for: med/psych decompensation Time Spent With Patient Time: Total time managing care of this patient today ____ minutes.
[2024-06-14] MEDS: Ondansetron ODT 4 MG TAB.RAPDIS TRANSLINGU (15:45)
[2024-06-14 20:00] VITALS: BP 158/84; PULSE 89; RESP 16; TEMP 36.8; O2SAT 98
[2024-06-14] MEDS: Mirtazapine 30 MG TABLET PO (20:32)
[2024-06-14] MEDS: Baclofen 10 MG TABLET PO (20:32)
--- NOTE | 2024-06-14 20:41 | PC.NURSE ---
Pt refused HS Clonidine 0.1 mg at 2039. States it make me very dizzy.
[2024-06-15 08:00] VITALS: BP 120/80; PULSE 81; TEMP 36.3; O2SAT 97
[2024-06-15 09:12] LABS: Alanine Aminotransferase 78 U/L (0-31); Albumin Level 4.7 g/dL (3.5-5.0); Alkaline Phosphatase 80 U/L (39-117); Anion Gap 17 (12-20); Aspartate Amino Transferase 79 U/L (5-31); Bilirubin Total 0.6 mg/dL (0.0-1.0); Blood Urea Nitrogen 17 mg/dL (9-16); Calcium 9.9 mg/dL (8.4-10.2); Carbon Dioxide 27 mmol/L (22-29); Chloride 103 mmol/L (96-108); Creatinine Clr Calc Pharmacy 64.4; Estimated Glomerular Filt Rate > 60; Glucose Random 139 mg/dL (60-115); Potassium 3.9 mmol/L (3.3-5.1); Sodium 143 mmol/L (135-145); Total Protein 7.8 g/dL (6.5-8.0)
--- NOTE | 2024-06-15 09:28 | P.PNPSI_ITS ---
Subjective Subjective Date of Service: 06/15/24 Reason For Visit: SI Subjective Notes: Conditional Voluntary and 3 Day Healthcare Proxy: No Guardianship: No Medical Problems Affecting Mental Status: No Interim History: Denies SI,HI,AH,VH. No sx a acute psychosis or betsy. Reports headache is improved today Duloxetine changed to p.m. Remeron increase pt will continue Clonidine and Abilify pt asks to discontinue. Concern expressed for her room-mate. Medication Compliance: Yes Side effects from medications: No Attending Groups: Intermittent Review of Systems migraine Review of Systems Review of Systems Reports migraine relief today Mental Status Exam Mental Status Exam Patient Appearance: Appropriate Patient Orientation: Person, Place, Time and Situation Level of Consciousness: Alert Patient Behavior: Appropriate, Talkative and Good Eye Contact Mood Description: Appropriate Affect Description: Appropriate Patient Cognition Impaired: No Ability to Follow Directions: Good Speech Pattern: Spontaneous Speech Memory Description: Intact Hallucinations: None Delusions: Not Present Thought Process: Intact Thought Content: positive for Intact and positive for Suicidal Ideation (denied) Depressive Symptoms: Thoughts of /Suicide (denies) Judgement: Good Diagnostics Vital Signs (24Hr): Vital Signs - 24 hr 06/14/24 20:00 06/15/24 08:00 Temperature 98.2 F 97.3 F Pulse Rate 89 81 Respiratory Rate 16 Blood Pressure 158/84 H 120/80 Pulse Oximetry 98 97 Oxygen Delivery Method Room Air Room Air BMI result Body Mass Index 20.0 Labs 06/12/24 11:44 06/15/24 08:15 Labs: Laboratory Results - last 48 hr 06/13/24 06/15/24 12:15 08:15 Sodium 143 Potassium 3.9 Chloride 103 Carbon Dioxide 27 Anion Gap 17 BUN 17 H Creatinine 0.85 Estim Creat Clear Calc 64.4 Estimated GFR > 60 Random Glucose 139 H Calcium 9.9 Total Bilirubin 0.6 AST 79 H ALT 78 H Alkaline Phosphatase 80 Total Protein 7.8 Albumin 4.7 Urine Color Dark Yellow Urine Appearance Clear Urine pH 5.5 Ur Specific [place] >= 1.030 H Urine Protein 30 (1+) H Urine Glucose (UA) Negative Urine Ketones 80 Urine Blood Negative Urine Nitrite Negative Ur Leukocyte Esterase Negative Urine RBC 0-2 Urine WBC 0-5 Ur Squamous Epith Cells 3-5 Urine Bacteria Trace Hyaline Casts 0-2 Urine Opiates Screen Not Detected Ur Buprenorphine Scrn Not Detected Ur Oxycodone Screen Not Detected Urine Methadone Screen Not Detected Urine Fentanyl Screen Not Detected Ur Barbiturates Screen Not Detected Ur Phencyclidine Scrn Not Detected Ur Amphetamines Screen POSITIVE H U Benzodiazepines Scrn Not Detected Urine Cocaine Screen Not Detected U Marijuana (THC) Screen POSITIVE H Medications Medications Current Medications Acetaminophen (Acetaminophen 325 Mg Tablet) 650 mg PO Q6H PRN PRN Reason: Headache/Pain, Scale 1-10 Last Admin: 06/12/24 21:21 Dose: 650 mg Acetaminophen/Butalbital/Caffeine (Butalb/Acetamin/Caff 50/325/40 Tablet) 1 tab PO Q4H PRN PRN Reason: Migraine Headache Last Admin: 06/13/24 21:16 Dose: 1 tab Al Hydroxide/Mg Hydroxide (Magnesium Hydrox/Alum Hydrox 30 Ml Oral.Susp) 30 ml PO Q6H PRN PRN Reason: Heartburn/Nausea Amlodipine Besylate (Amlodipine Besylate 5 Mg Tablet) 5 mg PO DAILY [facility]; Protocol Last Admin: 06/15/24 09:22 Dose: Not Given Aripiprazole (Aripiprazole 2 Mg Tablet) 2 mg PO DAILY [facility] Last Admin: 06/14/24 08:21 Dose: 2 mg Baclofen (Baclofen 10 Mg Tablet) 10 mg PO BEDTIME LADI Last Admin: 06/14/24 20:32 Dose: 10 mg Clonidine HCl (Clonidine Hcl 0.1 Mg Tablet) 0.1 mg PO BID [facility]; Protocol Last Admin: 06/15/24 09:22 Dose: Not Given Duloxetine HCl (Duloxetine Hcl 30 Mg Capsule.Dr) 30 mg PO DAILY [facility] Last Admin: 06/15/24 09:22 Dose: Not Given Hydroxyzine HCl (Hydroxyzine Hcl 25 Mg Tablet) 25 mg PO Q6H PRN PRN Reason: mild anxiety Ibuprofen (Ibuprofen 400 Mg Tablet) 400 mg PO Q6H PRN PRN Reason: Pain, Moderate(Pain Scale 4-6) Last Admin: 06/13/24 08:18 Dose: 400 mg Lorazepam (Lorazepam 1 Mg Tablet) 1 mg PO DAILY PRN PRN Reason: Anxiety Last Admin: 06/13/24 18:11 Dose: 1 mg Magnesium Hydroxide (Milk Of Magnesia 30 Ml Oral.Susp) 30 ml PO DAILY PRN PRN Reason: Constipation Mirtazapine (Mirtazapine 30 Mg Tablet) 30 mg PO BEDTIME [facility] Last Admin: 06/14/24 20:32 Dose: 30 mg Nicotine Polacrilex (Nicotine Polacrilex 2 Mg Gum) 4 mg BUCCAL Q2H PRN PRN Reason: Nicotine Cravings Olanzapine (Olanzapine 5 Mg Tablet) 5 mg PO TID PRN PRN Reason: agitation Ondansetron HCl (Ondansetron Odt 4 Mg Tab.Rapdis) 4 mg TRANSLINGU Q6H PRN PRN Reason: Nausea and Vomiting Last Admin: 06/14/24 15:45 Dose: 4 mg Tramadol HCl (Tramadol Hcl 50 Mg Tablet) 50 mg PO Q6H PRN PRN Reason: severe Pain Last Admin: 06/14/24 08:32 Dose: 50 mg Trazodone HCl (Trazodone Hcl 50 Mg Tablet) 50 mg PO BEDTIME MRX1 PRN PRN Reason: Insomnia Allergies Allergies Allergy/AdvReac Type Severity Reaction Status Date / Time Metoclopramide AdvReac Intermediate agitation Uncoded 06/13/24 12:29 Assessment & Plan Assessment & Plan (1) HTN (hypertension): Qualifiers: Hypertension type: primary hypertension Qualified Code(s): I10 - Essential (primary) hypertension Status: Acute Code(s): I10 - Essential (primary) hypertension (2) Migraine, intractable: Qualifiers: Migraine type: chronic migraine (15 or more days per month) without aura Status migrainosus presence: with status migrainosus Qualified Code(s): G 43.711 - Chronic migraine without aura, intractable, with status migrainosus Status: Acute Code(s): G43.919 - Migraine, unspecified, intractable, without status migrainosus (3) Status post fall: Status: Acute Code(s): Z91.81 - History of falling Plan Patient is a 53-year-old female with past medical history of migraine (intractable), fibromyalgia, MDD, insomnia medically cleared and admitted directly to Psychiatry for suicidal Ideations as reported by her spouse. Patient continues to have hypertension and an intractable migraine. Hospitalist consulted for these 2 medical issues. Hypertension -Per Psychiatry patient is receiving clonidine 0.1 mg b.i.d. with minimal effect. Recommend adding amlodipine 5 mg daily to start in AM. -Avoid hydralazine p.r.n. -Low-sodium diet -EKG negative for any ischemic changes, arrhythmia or LVH. No murmur on exam. Patient presents euvolemic. -Patient does follow with the primary care physician and has never been told she had hypertension in the past. Monitor for possibility of hypotension. -Vital signs should be checked every 4 hours until blood pressure normalizes and then Q shift if patient remains on new medications. -Thyroid function within normal limit. Intractable migraine -Recommend continuing Fioricet p.r.n. -Patient does not want to use Imitrex p.r.n. -Patient follows with Neurology at [facility] -Avoid NSAIDs due to patient's hypertension Status post fall, mechanical -Patient was cleared in the ED. all imaging is negative for any acute findings. -Recommend topical treatment for aches and pains. -Walker provided p.r.n. Hospitalist group we will continue to follow patient regarding hypertension to ensure normalization. 06/14- Hold Abilify Continue Mirtazapine at 30 mg HS Continue clonidine, hydralazine 06/15; DC Abilify, Clonidine Continue Mirtazapine increase Change Duloxetine to pm dosing. TDN to on 06/17. Reason for continued inpatient stay Substantial Risk for: med/psych decompensation Time Spent With Patient Time: Total time managing care of this patient today ____ minutes.
[2024-06-15 09:41] LABS: HBc Num1 0.06 S/CO (0.00-0.79); HBsAGNum1 0.33 S/CO (0.00-0.99); Hepatitis A Antibody IgM 0.12 Index (0-0.79); Hepatitis B Core Antibody Nonreactive (Nonreactive); Hepatitis B Surface Antigen Negative (Negative); ~HepC Num1 0.06 S/CO (0.00-0.79); ~Hepatitis A Antibody IgM Nonreactive (Nonreactive); ~Hepatitis B Surface Antibody NONREACTIVE (Nonreactive); ~Hepatitis C Antibody Nonreactive (Nonreactive)
[2024-06-15 10:36] VITALS: BP 162/83
[2024-06-15] MEDS: amLODIPine Besylate 5 MG TABLET PO (10:36)
[2024-06-15] MEDS: DULoxetine HCl 30 MG CAPSULE.DR PO (18:35)
[2024-06-15 19:41] VITALS: BP 151/67; PULSE 95; RESP 16; TEMP 37; O2SAT 97
[2024-06-15] MEDS: Mirtazapine 30 MG TABLET PO (21:01)
[2024-06-15] MEDS: Ibuprofen 400 MG TABLET PO (21:01)
[2024-06-15] MEDS: Baclofen 10 MG TABLET PO (21:01)
[2024-06-16] MEDS: Ibuprofen 400 MG TABLET PO ×3 (04:50→20:36)
[2024-06-16 07:54] VITALS: BP 143/108; PULSE 77; RESP 16; TEMP 36.6; O2SAT 100
[2024-06-16 09:47] VITALS: BP 136/100
[2024-06-16] MEDS: amLODIPine Besylate 5 MG TABLET PO (09:47)
[2024-06-16] MEDS: Acetaminophen 325 MG TABLET 650 MG PO ×2 (09:48→15:51)
--- NOTE | 2024-06-16 10:02 | HO.PSYCHPN ---
Subjective Subjective Date of Service: 06/16/24 Reason For Visit: SI Subjective Notes: Conditional Voluntary and 3 Day Healthcare Proxy: No Guardianship: No Medical Problems Affecting Mental Status: Yes (migraine, HTN) Interim History: Discussed discharge. No SI,HI,AH,VH. No sx of acute betsy or psychosis. Pt declines contact with OP Team. She prefers to make these contacts herself. Asks that Amlodipine Rx be sent to [facility] Medication Compliance: Yes Side effects from medications: No Attending Groups: Yes Review of Systems Acute medical concerns: Yes Review of Systems Review of Systems Migraine HTN Mental Status Exam Mental Status Exam Patient Appearance: Appropriate Patient Orientation: Person, Place, Time and Situation Level of Consciousness: Alert Patient Behavior: Appropriate, Talkative and Good Eye Contact Mood Description: Appropriate Affect Description: Appropriate Patient Cognition Impaired: No Ability to Follow Directions: Good Speech Pattern: Spontaneous Speech Memory Description: Intact Hallucinations: None Delusions: Not Present Thought Process: Intact Thought Content: positive for Intact and positive for Suicidal Ideation (denied) Depressive Symptoms: Thoughts of /Suicide (denies) Judgement: Good Diagnostics Vital Signs (24Hr): Vital Signs - 24 hr 06/15/24 10:36 06/15/24 19:41 06/16/24 07:54 Temperature 98.6 F 98 F Pulse Rate 95 77 Respiratory Rate 16 16 Blood Pressure 162/83 H 151/67 H 143/108 H Pulse Oximetry 97 100 Oxygen Delivery Method Room Air 06/16/24 09:47 Temperature Pulse Rate Respiratory Rate Blood Pressure 136/100 H Pulse Oximetry Oxygen Delivery Method BMI result Body Mass Index 20.0 Labs 06/12/24 11:44 06/15/24 08:15 Labs: Laboratory Results - last 48 hr 06/15/24 08:15 Sodium 143 Potassium 3.9 Chloride 103 Carbon Dioxide 27 Anion Gap 17 BUN 17 H Creatinine 0.85 Estim Creat Clear Calc 64.4 Estimated GFR > 60 Random Glucose 139 H Calcium 9.9 Total Bilirubin 0.6 AST 79 H ALT 78 H Alkaline Phosphatase 80 Total Protein 7.8 Albumin 4.7 Hepatitis A IgM Ab Nonreactive Hep Bs Antigen Negative Hep Bs Antibody NONREACTIVE Hep B Core Total Ab Nonreactive Hepatitis C Ab (EIA) Nonreactive Medications Medications Current Medications Acetaminophen (Acetaminophen 325 Mg Tablet) 650 mg PO Q6H PRN PRN Reason: Headache/Pain, Scale 1-10 Last Admin: 06/16/24 09:48 Dose: 650 mg Al Hydroxide/Mg Hydroxide (Magnesium Hydrox/Alum Hydrox 30 Ml Oral.Susp) 30 ml PO Q6H PRN PRN Reason: Heartburn/Nausea Amlodipine Besylate (Amlodipine Besylate 5 Mg Tablet) 5 mg PO DAILY [facility]; Protocol Last Admin: 06/16/24 09:47 Dose: 5 mg Baclofen (Baclofen 10 Mg Tablet) 10 mg PO BEDTIME LADI Last Admin: 06/15/24 21:01 Dose: 10 mg Duloxetine HCl (Duloxetine Hcl 30 Mg Capsule.Dr) 30 mg PO 1830 [facility] Last Admin: 06/15/24 18:35 Dose: 30 mg Ibuprofen (Ibuprofen 400 Mg Tablet) 400 mg PO Q6H PRN PRN Reason: Pain, Moderate(Pain Scale 4-6) Last Admin: 06/16/24 04:50 Dose: 400 mg Lorazepam (Lorazepam 1 Mg Tablet) 1 mg PO DAILY PRN PRN Reason: Anxiety Last Admin: 06/13/24 18:11 Dose: 1 mg Magnesium Hydroxide (Milk Of Magnesia 30 Ml Oral.Susp) 30 ml PO DAILY PRN PRN Reason: Constipation Mirtazapine (Mirtazapine 30 Mg Tablet) 30 mg PO BEDTIME [facility] Last Admin: 06/15/24 21:01 Dose: 30 mg Olanzapine (Olanzapine 5 Mg Tablet) 5 mg PO TID PRN PRN Reason: agitation Ondansetron HCl (Ondansetron Odt 4 Mg Tab.Rapdis) 4 mg TRANSLINGU Q6H PRN PRN Reason: Nausea and Vomiting Last Admin: 06/14/24 15:45 Dose: 4 mg Tramadol HCl (Tramadol Hcl 50 Mg Tablet) 50 mg PO Q6H PRN PRN Reason: severe Pain Last Admin: 06/14/24 08:32 Dose: 50 mg Trazodone HCl (Trazodone Hcl 50 Mg Tablet) 50 mg PO BEDTIME MRX1 PRN PRN Reason: Insomnia Allergies Allergies Allergy/AdvReac Type Severity Reaction Status Date / Time Metoclopramide AdvReac Intermediate agitation Uncoded 06/13/24 12:29 Assessment & Plan Assessment & Plan (1) HTN (hypertension): Qualifiers: Hypertension type: primary hypertension Qualified Code(s): I10 - Essential (primary) hypertension Status: Acute Code(s): I10 - Essential (primary) hypertension (2) Migraine, intractable: Qualifiers: Migraine type: chronic migraine (15 or more days per month) without aura Status migrainosus presence: with status migrainosus Qualified Code(s): G43.711 - Chronic migraine without aura, intractable, with status migrainosus Status: Acute Code(s): G43.919 - Migraine, unspecified, intractable, without status migrainosus (3) Status post fall: Status: Acute Code(s): Z91.81 - History of falling Plan Patient is a 53-year-old female with past medical history of migraine (intractable), fibromyalgia, MDD, insomnia medically cleared and admitted directly to Psychiatry for suicidal Ideations as reported by her spouse. Patient continues to have hypertension and an intractable migraine. Hospitalist consulted for these 2 medical issues. Hypertension -Per Psychiatry patient is receiving clonidine 0.1 mg b.i.d. with minimal effect. Recommend adding amlodipine 5 mg daily to start in AM. -Avoid hydralazine p.r.n. -Low-sodium diet -EKG negative for any ischemic changes, arrhythmia or LVH. No murmur on exam. Patient presents euvolemic. -Patient does follow with the primary care physician and has never been told she had hypertension in the past. Monitor for possibility of hypotension. -Vital signs should be checked every 4 hours until blood pressure normalizes and then Q shift if patient remains on new medications. -Thyroid function within normal limit. Intractable migraine -Recommend continuing Fioricet p.r.n. -Patient does not want to use Imitrex p.r.n. -Patient follows with Neurology at [facility] -Avoid NSAIDs due to patient's hypertension Status post fall, mechanical -Patient was cleared in the ED. all imaging is negative for any acute findings. -Recommend topical treatment for aches and pains. -Walker provided p.r.n. Hospitalist group we will continue to follow patient regarding hypertension to ensure normalization. 06/14- Hold Abilify Continue Mirtazapine at 30 mg HS Continue clonidine, hydralazine 06/15; DC Abilify, Clonidine Continue Mirtazapine increase Change Duloxetine to pm dosing. TDN to on 06/17. 06/16: DC 06/17 via TDN Declines contact with providers Amlodipine Rx will be sent to [facility]. Will send 7 day supply with 4 refills as pt/team may want to make changes and we have been denied contact to review with them. Denies SI,HI,AH,VH. No sx of acute betsy, psychosis Reason for continued inpatient stay Substantial Risk for: stable for discharge Time Spent With Patient Time: Total time managing care of this patient today ____ minutes.
[2024-06-16 12:00] VITALS: BP 144/84
[2024-06-16] MEDS: DULoxetine HCl 30 MG CAPSULE.DR PO (18:52)
[2024-06-16 19:45] VITALS: BP 157/75; PULSE 82; RESP 16; TEMP 36.4; O2SAT 99
[2024-06-16] MEDS: Baclofen 10 MG TABLET PO (20:36)
[2024-06-16] MEDS: Mirtazapine 30 MG TABLET PO (20:36)
[2024-06-17] MEDS: Ibuprofen 400 MG TABLET PO (05:13)
[2024-06-17 08:11] VITALS: BP 120/79; PULSE 77; RESP 16; TEMP 36.5; O2SAT 99
[2024-06-17] MEDS: amLODIPine Besylate 5 MG TABLET PO (08:47)
--- NOTE | 2024-06-17 10:19 | PM.PSYDC ---
DS: Providers Provider Date of admission: 06/12/24 16:28 Primary care physician: Unknown Physician Consults: 06/13/24 18:33 Consult to Hospitalist Routine Comment: Consulting Provider: [facility] Hospitalists Reason For Exam: med management for HTN; intractacble Migraines DS: Diagnosis Discharge Diagnosis (1) HTN (hypertension): Status: Acute (2) Migraine, intractable: Status: Acute (3) Status post fall: Status: Acute DS: Medications Discharge Medications Home Medications: Home Medications ?Medication ?Instructions ?Recorded ?Confirmed baclofen 10 mg tablet 10 mg PO BEDTIME 06/12/24 06/13/24 dextroamphetamine-amphetamine 20 20 mg PO 2XD PRN ADD 06/12/24 06/13/24 mg tablet (Adderall) duloxetine 30 mg capsule,delayed 30 mg PO DAILY 06/12/24 06/13/24 release lorazepam 1 mg tablet (Ativan) 1 mg PO DAILY PRN Anxiety 06/12/24 06/13/24 mirtazapine 15 mg tablet 15 mg PO BEDTIME 06/12/24 06/13/24 tramadol 50 mg tablet 50 mg PO Q6H PRN Pain 06/12/24 06/13/24 Previous Rx's ?Medication ?Instructions ?Recorded acetaminophen 325 mg tablet 650 mg (2 x 325 mg) PO Q6H PRN 06/16/24 Headache/Pain, Scale 1-10 #0 tabs amlodipine 5 mg tablet 5 mg PO DAILY #7 tabs 06/16/24 ibuprofen 400 mg tablet 400 mg PO Q6H PRN Pain, 06/16/24 Moderate(Pain Scale 4-6) #0 tabs Data Data Completed and Pending Completed studies during hospitalization [Text1]: 06/12/24 06/13/24 06/13/24 11:44 08:26 12:15 WBC 11.7 H RBC 4.22 Hgb 12.9 Hct 37.6 MCV 89.1 MCH 30.6 MCHC 34.3 RDW 14.0 Plt Count 267 MPV 9.5 Immature Gran % (Auto) 0.3 Neut % (Auto) 67.7 Lymph % (Auto) 24.3 [place] % (Auto) 6.8 Eos % (Auto) 0.6 Baso % (Auto) 0.3 Lymph # (Auto) 2.8 [place] # (Auto) 0.8 Eos # (Auto) 0.1 Baso # (Auto) 0.0 Abs Immat Gran (auto) 0.04 H Absolute Neuts (auto) 7.9 Absolute Nucleated RBC 0.000 Nucleated RBC % (auto) 0.0 Sodium 139 143 Potassium 3.2 L 3.5 Chloride 102 103 Carbon Dioxide 26 24 Anion Gap 14 20 BUN 16 22 H Creatinine 0.91 0.72 Estim Creat Clear Calc 60.2 76.1 Estimated GFR > 60 > 60 Random Glucose 119 H 100 Estimat Average Glucose 100 Hemoglobin A1c % 5.1 Calcium 9.6 9.5 Total Bilirubin 0.4 0.8 AST 132 H 102 H ALT 110 H 96 H Alkaline Phosphatase 82 76 Total Protein 6.9 6.9 Albumin 4.4 4.3 Triglycerides 59 Cholesterol 172 LDL Cholesterol, Calc 85 HDL Cholesterol 76 TSH 2.63 Urine Color Dark Yellow Urine Appearance Clear Urine pH 5.5 Ur Specific [place] >= 1.030 H Urine Protein 30 (1+) H Urine Glucose (UA) Negative Urine Ketones 80 Urine Blood Negative Urine Nitrite Negative Ur Leukocyte Esterase Negative Urine RBC 0-2 Urine WBC 0-5 Ur Squamous Epith Cells 3-5 Urine Bacteria Trace Hyaline Casts 0-2 Salicylates < 5.0 L Urine Opiates Screen Not Detected Ur Buprenorphine Scrn Not Detected Ur Oxycodone Screen Not Detected Urine Methadone Screen Not Detected Urine Fentanyl Screen Not Detected Acetaminophen < 3 Ur Barbiturates Screen Not Detected Ur Phencyclidine Scrn Not Detected Ur Amphetamines Screen POSITIVE H U Benzodiazepines Scrn Not Detected Urine Cocaine Screen Not Detected U Marijuana (THC) Screen POSITIVE H Ethyl Alcohol < 10 Hepatitis A IgM Ab Hep Bs Antigen Hep Bs Antibody Hep B Core Total Ab Hepatitis C Ab (EIA) Influenza Type A (PCR) NEGATIVE Influenza Type B (PCR) NEGATIVE RSV RNA Qual (PCR) NEGATIVE SARS-CoV-2 RNA (RT-PCR) NEGATIVE 06/15/24 08:15 WBC RBC Hgb Hct MCV MCH MCHC RDW Plt Count MPV Immature Gran % (Auto) Neut % (Auto) Lymph % (Auto) [place] % (Auto) Eos % (Auto) Baso % (Auto) Lymph # (Auto) [place] # (Auto) Eos # (Auto) Baso # (Auto) Abs Immat Gran (auto) Absolute Neuts (auto) Absolute Nucleated RBC Nucleated RBC % (auto) Sodium 143 Potassium 3.9 Chloride 103 Carbon Dioxide 27 Anion Gap 17 BUN 17 H Creatinine 0.85 Estim Creat Clear Calc 64.4 Estimated GFR > 60 Random Glucose 139 H Estimat Average Glucose Hemoglobin A1c % Calcium 9.9 Total Bilirubin 0.6 AST 79 H ALT 78 H Alkaline Phosphatase 80 Total Protein 7.8 Albumin 4.7 Triglycerides Cholesterol LDL Cholesterol, Calc HDL Cholesterol TSH Urine Color Urine Appearance Urine pH Ur Specific [place] Urine Protein Urine Glucose (UA) Urine Ketones Urine Blood Urine Nitrite Ur Leukocyte Esterase Urine RBC Urine WBC Ur Squamous Epith Cells Urine Bacteria Hyaline Casts Salicylates Urine Opiates Screen Ur Buprenorphine Scrn Ur Oxycodone Screen Urine Methadone Screen Urine Fentanyl Screen Acetaminophen Ur Barbiturates Screen Ur Phencyclidine Scrn Ur Amphetamines Screen U Benzodiazepines Scrn Urine Cocaine Screen U Marijuana (THC) Screen Ethyl Alcohol Hepatitis A IgM Ab Nonreactive Hep Bs Antigen Negative Hep Bs Antibody NONREACTIVE Hep B Core Total Ab Nonreactive Hepatitis C Ab (EIA) Nonreactive Influenza Type A (PCR) Influenza Type B (PCR) RSV RNA Qual (PCR) SARS-CoV-2 RNA (RT-PCR) DS: Summary Time Spent with Patient Time attestation: Total time managing care of this patient today ____ minutes. Discharge Plan Discharge Anticipated Discharge Date/Time: 06/17/24 12:00 Patient Disposition: Home, Self-Care Discharge Diagnosis: Depression Migraine HTN Referrals: Therapist- Radha DE LA ROSA [Other] - 1 Week (Please follow up with Radha to continue with your scheduled appointments) [facility] with Dr. Davis Mead [Other] - 1 Week (Please follow up with Dr. Davis Mead for your appointment ) Couples Counseling- RJ Ferris [Other] - 1 Week (Please follow up with Grisel for your couples counseling appointment ) [facility] ([facility] [Other] - 1 Day (Friday - Friday 8:30 AM to 5:00 PM Eastern Time. [facility] is closed for major holidays. Website- [email or web address] To receive our Case Management services, a patient must: Have a confirmed diagnosis of a serious health condition. Or the patient must be getting testing for the condition. Be in active treatment for the health condition or starting treatment in the next 60 days. Or the patient must have finished treatment in the last 6 months. Be a [place] citizen or a permanent resident of the [place]. Be getting treatment in the [place] or a [place] territory. ) Physician,Unknown J [Primary Care Provider] - 1 Week Discharge Medications: New acetaminophen 325 mg Tablet 650 mg PO Q6H PRN (Reason: Headache/Pain, Scale 1-10) Qty: 0 0RF ibuprofen 400 mg Tablet 400 mg PO Q6H PRN (Reason: Pain, Moderate(Pain Scale 4-6)) Qty: 0 0RF amlodipine 5 mg tablet 5 mg PO DAILY Qty: 7 4RF Continued tramadol 50 mg Tablet 50 mg PO Q6H PRN (Reason: Pain) lorazepam [Ativan] 1 mg Tablet 1 mg PO DAILY PRN (Reason: Anxiety) mirtazapine 15 mg Tablet 15 mg PO BEDTIME Rx Instructions: take 1.5 tablets baclofen 10 mg Tablet 10 mg PO BEDTIME dextroamphetamine-amphetamine [Adderall] 20 mg Tablet 20 mg PO 2XD PRN (Reason: ADD) duloxetine 30 mg Capsule,Delayed Release(Dr/Ec) 30 mg PO DAILY Discharge Orders: Discharge Order (Routine); Ordered 06/17/24 Ordered By: Ysabel Owen Diet: Advance to usual diet Activity on Discharge: As tolerated Stand Alone Forms: Patient Portal Discharge page Print Language: Latvian Care Plan Goals: Mood and Behavioral Stabilization Pain management Health Concerns: Mood and Behavioral Stabilization Pain management Plan of Treatment: Take medications as directed Attend scheduled appointments Call/Return as needed [facility]- Free newsletter that you can subscribe to on their [email or web address] Assessment: Pt has insight and demonstrates good judgment in terms of wanting to continue treatment. Pt has a safety plan that includes presenting to the closest ER or calling 911 if feeling unsafe.
[2024-06-17] MEDS: Acetaminophen 325 MG TABLET 650 MG PO (10:25)
== END 2024-06-17 10:55 | disposition home or self-care (01) | DRG 885 ==
LOC: HO.ED 15:18 → HO.PM5 17:20
PROVIDERS: Nurse Practitioner Family; Registered Nurse Emergency; Admitting Provider Psychiatry & Neurology Psychiatry; Emergency Provider Emergency Medicine; Visit Provider Clinical Nurse Specialist Psychiatric/Mental Health, Adult
DX: F33.2 Major depressive disorder, recurrent severe without psychotic features (principal); R45.851 Suicidal ideations; I10 Essential (primary) hypertension; G43.909 Migraine, unspecified, not intractable, without status migrainosus; Z20.822 Contact with and (suspected) exposure to COVID-19; Z91.81 History of falling; Z79.899 Other long term (current) drug therapy
CPT/HCPCS: 0241U; 36415; 70450; 70486; 72125; 73502; 80053; 80061; 80143; 80179; 80307; 81001; 81003; 83036; 84443; 85025; 86704; 86706; 86709; 86803; 87340; 93005; 99285; S9485

== ENCOUNTER → 2024-06-12 11:27 | Outpatient (BNV) | payer SELFPAY | PROVIDERS: Admitting Provider Psychiatry & Neurology Psychiatry; Emergency Provider Emergency Medicine; Visit Provider Internal Medicine | DX: R00.0 Tachycardia, unspecified (principal) | CPT/HCPCS: 93010 ==

== ENCOUNTER → 2024-06-12 12:33 | Outpatient (BNV) | payer MEDICARE, SELFPAY | PROVIDERS: Emergency Provider Emergency Medicine; Visit Provider Radiology Diagnostic Radiology | DX: S09.90XA Unspecified injury of head, initial encounter (principal); R04.0 Epistaxis; M25.551 Pain in right hip; W01.198A Fall on same level from slipping, tripping and stumbling with subsequent striking against other object, initial encounter | CPT/HCPCS: 70450; 70486; 72125; 73502 ==

== ENCOUNTER 2024-06-12 16:28 | Outpatient (BNV) | payer SELFPAY | END 2024-06-13 09:22 | PROVIDERS: Admitting Provider Psychiatry & Neurology Psychiatry; Emergency Provider Emergency Medicine; Visit Provider Internal Medicine | DX: R94.31 Abnormal electrocardiogram [ECG] [EKG] (principal); Z13.6 Encounter for screening for cardiovascular disorders | CPT/HCPCS: 93010 ==

== ENCOUNTER → 2024-06-12 16:28 | Outpatient (BNV) | payer SELFPAY | PROVIDERS: Admitting Provider Psychiatry & Neurology Psychiatry; Emergency Provider Emergency Medicine; Visit Provider Nurse Practitioner Family | DX: I10 Essential (primary) hypertension (principal); G43.711 Chronic migraine without aura, intractable, with status migrainosus; Z91.81 History of falling | CPT/HCPCS: 99222 ==

== ENCOUNTER → 2024-06-12 16:28 | Outpatient (BNV) | payer MEDICARE, SELFPAY | PROVIDERS: Admitting Provider Psychiatry & Neurology Psychiatry; Emergency Provider Emergency Medicine; Visit Provider Psychiatry & Neurology Psychiatry | DX: F33.2 Major depressive disorder, recurrent severe without psychotic features (principal); I10 Essential (primary) hypertension; G43.711 Chronic migraine without aura, intractable, with status migrainosus; Z91.81 History of falling | CPT/HCPCS: 90792; 99232 ==